=== PATIENT | female | born 1980 | race African-American/Black ===

== ENCOUNTER 2020-01-10 05:03 | Emergency (ER) | payer OTHER ==
[~2020-01-10] VITALS: Ht 162.6 cm; Wt 135.0 kg
[2020-01-10] MEDS ORDERED: COZAAR100 MG PO (05:40)
[2020-01-10] MEDS ORDERED: HYDROCHLOROT25 MG PO (05:40)
[2020-01-10] MEDS ORDERED: XANAX2 MG PO (05:41)
[2020-01-10] MEDS ORDERED: CELEXA10 MG PO (05:42)
[2020-01-10] MEDS ORDERED: EPIPEN 2-P0.3 MG/0.3 IM (09:27)
[2020-01-10 09:32] VITALS: BP 137/63
== END 2020-01-10 09:40 | disposition home or self-care (01) | DRG 916 ==
LOC: ED 05:03
DX: T78.40XA Allergy, unspecified, initial encounter (principal); X58.XXXA Exposure to other specified factors, initial encounter

== ENCOUNTER 2022-04-26 14:36 | Emergency (ER) | payer OTHER ==
[2022-04-26] VITALS (9 sets, daily range): BP systolic 112–147; BP diastolic 61–90
[~2022-04-26] VITALS: Ht 162.6 cm; Wt 159.0 kg
[~2022-04-26 14:36] MED LIST: CELEXA10 MG PO; COZAAR100 MG PO; EPIPEN 2-P0.3 MG/0.3 IM; HYDROCHLOROT25 MG PO; XANAX2 MG PO
[2022-04-26] MEDS ORDERED: ZYRTEC10 MG PO (17:24)
[2022-04-26] MEDS ORDERED: MEDDOSEPAK PO (17:24)
== END 2022-04-26 17:49 | disposition home or self-care (01) | DRG 607 ==
LOC: ED 14:36
DX: S80.261A Insect bite (nonvenomous), right knee, initial encounter (principal); W57.XXXA Bitten or stung by nonvenomous insect and other nonvenomous arthropods, initial encounter; T78.49XA Other allergy, initial encounter